=== PATIENT | female | born 1985 | race Caucasian/White ===

== ENCOUNTER 2019-05-10 17:17 | Emergency (ER) | payer OTHER ==
[~2019-05-10] VITALS: Ht 154.9 cm; Wt 62.7 kg
[2019-05-10 17:22] VITALS: Ht 154.9 cm; Wt 62.7 kg
[2019-05-10 19:20] VITALS: BP 117/68
== END 2019-05-10 19:20 | disposition home or self-care (01) ==
LOC: ED 17:17
DX: S61.231A Puncture wound without foreign body of left index finger without damage to nail, initial encounter (principal); W46.0XXA Contact with hypodermic needle, initial encounter; Y93.89 Activity, other specified; Y92.89 Other specified places as the place of occurrence of the external cause; Y99.8 Other external cause status
CPT/HCPCS: 90715